=== PATIENT | female | born 1940 | race Caucasian/White ===

== ENCOUNTER 2024-03-27 08:39 | Day surgery (SDC) | payer OTHER ==
[~2024-03-27] VITALS: Ht 154.9 cm; Wt 65.8 kg
[~2024-03-27 08:39] MED LIST: CEFAZOLIN SOD 2 GM in D5W 50 ML IV ONE
[2024-03-27] MEDS ORDERED: METOCLOPRAMIDE HCL 10 MG/2 ML VIAL ONE (10:30)
[2024-03-27 10:45] VITALS: O2SAT 97
[2024-03-27] MEDS ORDERED: ONDANSETRON HCL 4 MG/2 ML VIAL IVP PRN ×2 (11:00→12:00)
[2024-03-27] MEDS ORDERED: HYDROmorphone 2 MG/ML VIAL IVP PRN (11:00)
[2024-03-27] MEDS ORDERED: LR 1,000 ML IV SCH (11:00)
[2024-03-27] MEDS ORDERED: HYDROmorphone 1 MG/ML INJ. CARTRIDGE IVP PRN (11:00)
[2024-03-27] MEDS ORDERED: HYDROcodone/ACETAMIN 5-325 MG TAB (NORCO/ VICODIN) PO PRN (12:00)
[2024-03-27] MEDS ORDERED: OXYCODONE/ACETAMINOPHEN 5-325 TABLET PO PRN ×2 (12:00)
[2024-03-27] MEDS ORDERED: MEPERIDINE HCL/PF 25 MG/ML DISP.SYRIN IM PRN (12:45)
[2024-03-27] MEDS: MEPERIDINE HCL/PF 25 MG/ML DISP.SYRIN ONE (12:46)
[2024-03-27 14:30] VITALS: BP_SYST 113; PULSE 93; RESP 18; TEMP 97.8
== END 2024-03-27 14:17 | disposition home or self-care (01) ==
LOC: SDS 08:39 → SMU 08:40 → SDS 14:17
PROVIDERS: ATTEND Specialist
DX: N95.0 Postmenopausal bleeding (principal); N85.8 Other specified noninflammatory disorders of uterus; R93.89 Abnormal findings on diagnostic imaging of other specified body structures; N85.2 Hypertrophy of uterus; I10 Essential (primary) hypertension; E78.5 Hyperlipidemia, unspecified; M19.90 Unspecified osteoarthritis, unspecified site; Z78.0 Asymptomatic menopausal state; Z79.899 Other long term (current) drug therapy
CPT/HCPCS: 87081; 58561; 88305; J0690; J1885; J2765; J2405; J2704; J3010; J2175; J7060; C1819